=== PATIENT | male | born 1960 | race Caucasian/White ===

== ENCOUNTER 2024-10-23 13:00 | Outpatient (CLI) | payer SELFPAY ==
--- NOTE | 2024-10-23 13:28 | CT_ITS ---
WS: [id number] CT CALCIUM SCORE REASON FOR VISIT: HNT, PALPATATIONS DIABETES; Coronary artery disease risk assessment COMPARISON: None TECHNIQUE: Noncontrast coronary CT in combination with quantitative analysis performed on a separate workstation were used to determine CACS (Agatston score) TOTAL EXAM DOSE: 57.73 mGy.cm ECG GATING: Prospective SCAN RANGE: Pulmonary artery bifurcation to Inferior aspect of heart COMPLICATIONS: None FINDINGS: Technical Quality/Examination Quality: Good Limitation: None OVERALL SCORES Total calcium score: 57 Total volume score: 59 mm3 Percentile: 25th-50th% ARTERY SCORES Left main coronary artery: 14 Left anterior descending artery: 22 Left circumflex artery: 0 Right coronary artery: 21 OTHER FINDINGS: Mediastinum: Normal. Thoracic aorta: Normal. Lungs: Benign granuloma LEFT upper and lower lobes. Upper Abdomen: Normal. CT/CT heart w calcium score 30425 IMPRESSION: 1. Total calcium score 57. 2. Calcium score of 57 is between the 25th and 50th percentile for males of thi s age. Means that 25% of people this age and gender had less calcium than was d etected on this study. 3. Recommendation: Mildly increased risk. Moderate intensity statin recommended .
== END 2024-10-23 13:01 | disposition home or self-care (01) ==
LOC: RAD 13:03
PROVIDERS: Visit Provider Nurse Practitioner Family
DX: I10 Essential (primary) hypertension (principal); R00.2 Palpitations; E11.9 Type 2 diabetes mellitus without complications
CPT/HCPCS: 75571